=== PATIENT | female | born 1995 | race Caucasian/White ===

== ENCOUNTER 2016-10-04 06:40 | Inpatient (IN) | payer OTHER, MEDICAID ==
[~2016-10-04] VITALS: Ht 162.6 cm; Wt 78.5 kg
--- NOTE | ~2016-10-04 | FD ---
ADMIT: 10/04/2016 RM/LOC: 225 [facility] MR#: [id number] 2620 [facility] [address] [place] [id number] MARK HENDERSON [address] [place] [address] Final Diagnosis SEX: F AGE: 21 : 1995 ADMISSION DATE: 10/04/2016 DISCHARGE DATE: 10/07/2016 FINAL DIAGNOSIS: 1. Status post spontaneous vaginal delivery at term. 2. Seizure disorder. PROCEDURE: 10/05/2016 spontaneous vaginal delivery with delivery of viable male, 8 pounds, Apgars 7 and 9. Corazon Hampton MD/ naomi JOB #: [id number] CC: Corazon Hampton MD, Attending Physician NO FAMILY PHYSICIAN, Family Physician
--- NOTE | ~2016-10-04 | OR ---
ADMIT: 10/04/2016 RM/LOC: 225 [facility] MR#: [id number] 2620 [facility] [address] [place] [id number] MARK HENDERSON [address] [place] [address] Operative/Delivery Room Report SEX: F AGE: 21 : 1995 SURGERY DATE: 10/05/2016 SURGEON: Corazon Hampton MD PREOPERATIVE DIAGNOSES: 1. Intrauterine at 40 and 5/7th weeks' gestation. 2. Active labor. 3. Group B streptococcus negative. 4. Seizure disorder. POSTOPERATIVE DIAGNOSES: 1. Intrauterine at 40 and 5/7th weeks' gestation. 2. Active labor. 3. Group B streptococcus negative. 4. Seizure disorder. 5. Delivery of a viable male infant at 0357 hours weighing 8 pounds with scores of 7 at 1 minute, 9 at 5 minutes. PROCEDURE: Spontaneous vaginal delivery with repair of first-degree laceration. ANESTHESIA: Epidural. COMPLICATIONS: None. ESTIMATED BLOOD LOSS: 100 mL. FLUIDS: Crystalloid. INDICATIONS: This is a 21-year-old female, 1, para 0, who presents to the [facility] with an intrauterine at 40 and 4/7th weeks' gestation for induction of labor. Her was complicated by history of a seizure disorder and late entry to care. At the time of initial evaluation, she was noted to be 1.5 cm dilated. She was given 1 dose of misoprostol 25 mcg vaginally. Following this, a Lee bulb was placed. She did experience spontaneous rupture of membranes. Pitocin augmentation was used once the Lee bulb fell out. She did request and receive an epidural for pain control. She progressed to be complete in a satisfactory fashion at which time, she was allowed to push bringing the 's vertex to the perineum. DESCRIPTION OF PROCEDURE: The patient was noted be complete. She was placed in the dorsal lithotomy position and prepped and draped in usual sterile fashion. She was asked to push and delivered the 's vertex in the right occiput anterior position over the midline. Nuchal cord x1 was relieved around the infant's vertex. The anterior shoulder delivered easily followed ADMIT: 10/04/2016 RM/LOC: 225 [facility] MR#: [id number] [address] [place], [place] [id number] MARK HENDERSON [address] [place] [address] Operative/Delivery Room Report SEX: F AGE: 21 : 1995 by the posterior shoulder and the remainder of the . The infant did have spontaneous cry and movement of all 4 extremities. He was passed to the mother's abdomen where nursing personnel were in attendance. After 1 minute, the cord was clamped x2 and cut by the father. Cord blood was obtained. Twenty units of Pitocin were infused with IV fluids to help firm the uterus. The placenta delivered intact spontaneously. The uterus was not explored. Examination of the cervix did not reveal any lacerations. She did have 2 first-degree tears in the hymenal ring at the 3 o'clock and 7 o'clock positions. A single [id number] stitch of 3-0 Vicryl was placed at either of these to obtain hemostasis. The patient tolerated the procedure well. Sponge, needle, and instrument counts were correct. She is recovering on her Labor and Delivery suite with her infant. Corazon Hampton MD/ lori JOB #: [id number] CC: Corazon Hampton, Attending Physician FAMILY PHYSICIAN, Family Physician
[2016-10-08] MEDS ORDERED: PRENATAL VIT1 TAB PO (13:31)
[2016-10-08] MEDS ORDERED: KEPPRA750 MG PO (13:31)
[2016-10-08] MEDS ORDERED: MOTRIN-DPS800 MG PO (13:32)
[2016-10-08] MEDS ORDERED: NIPPLECREAM TP (13:32)
[2016-10-08] MEDS ORDERED: FOLVITE-DPS1 MG PO (13:32)
--- NOTE | 2016-10-27 22:28 | HP ---
ADMIT: 10/04/2016 RM/LOC: 225 [facility] MR#: [id number] [address] [facility] [address] [place], [place] [phone] MARK HENDERSON Brett [address] [place] [address] History and Physical SEX: F AGE: 21 : 1995 DATE OF SERVICE: CHIEF COMPLAINT: Induction of labor. HISTORY OF PRESENT ILLNESS: This is a 21-year-old female, 1, para 0, who presents to the [facility] with an intrauterine at 40-4/7th weeks' gestation with estimated date of confinement of 09/30/2016. Her estimated date of confinement is based off last menstrual period and consistent with an 8-week ultrasound. Her has been complicated by history of a seizure disorder and late entry to care. She has not had a seizure in several years. She was seen and evaluated by Maternal Medicine. Ultrasound has confirmed adequate growth. LABORATORY DATA: Blood type is O positive. Antibody screen negative. HIV negative. Hepatitis B surface antigen negative. RPR nonreactive. Rubella immune. Quad screen was normal. Diabetic screen of 76. Group B Strep is negative. Pap showed low-grade squamous intraepithelial lesion. Gonorrhea chlamydia is negative. PAST MEDICAL HISTORY: She does have a history of epilepsy. She denies hypertension, diabetes, asthma, kidney or thyroid disease. PAST SURGICAL HISTORY: None. SOCIAL HISTORY: She denies tobacco, alcohol, or drug use. The father of the baby is involved. ALLERGIES: NO KNOWN DRUG ALLERGIES. CURRENT MEDICATIONS: 1. vitamins. 2. Keppra 750 mg b.i.d. 3. Folic acid 5 mg daily. PHYSICAL EXAMINATION: VITAL SIGNS: Temperature is 96.8, blood pressure is 128/76. GENERAL: This is a pleasant female, in no acute distress. HEENT: Head is normocephalic, atraumatic. Pupils are equal, round, and reactive to light and accommodation. Extraocular muscles are intact. NECK: Supple. HEART: Regular rate and rhythm. LUNGS: Clear bilaterally. ABDOMEN: Soft, nontender, and nondistended. Gravid. EXTREMITIES: Nontender. heart tones are 120 to 125 baseline, moderate variability is present, 15 x 15 accelerations are present. Decelerations are absent. Uterine contractions are every 2 to 6 minutes, palpate mild, she does not feel all of these. Cervix is 1.5 cm dilated, 50% effaced, and -2 station per nursing ADMIT: 10/04/2016 RM/LOC: 225 [facility] MR#: [id number] [address] [phone] MARK HENDERSON [address] [facility] [address] [place] [address] History and Physical SEX: F AGE: 21 : 1995 staff. Fetus is vertex. Estimated weight is 7.5 pounds. IMPRESSION: 1. This is a 21-year-old female, 1, para 0, with intrauterine at 40-4/7th weeks' gestation. 2. Group B Streptococcus negative. 3. History of a seizure disorder. PLAN: At this time, we do plan to proceed with induction of labor. We will start with placing misoprostol 25 mcg vaginally and we will check her in 3-4 hours. We will augment as needed with assisted rupture of membranes and Pitocin, and anticipate a spontaneous vaginal delivery. Corazon Hampton MD/ lori JOB #: [id number] CC: Corazon Hampton, Attending Physician FAMILY PHYSICIAN, Family Physician
--- NOTE | 2016-10-27 22:32 | OR ---
ADMIT: 10/04/2016 RM/LOC: 225 [facility] MR#: [id number] [address] [id number] MARK HENDERSON [address] [place] [address] Operative/Delivery Room Report SEX: F AGE: 21 : 1995 SURGERY DATE: 10/05/2016 SURGEON: Corazon Hampton MD PROCEDURE: Removal of the epidural catheter. DESCRIPTION OF PROCEDURE: This is a 21-year-old female, 1, now para 1, who delivered a viable male with an epidural in place. Following delivery, she was placed in the sitting position, the epidural catheter was removed without any difficulty. The tip was noted to be intact. The patient tolerated the procedure well. She is now recovering in her Labor and Delivery suite with her infant. Corazon Hampton MD/ lori JOB #: [id number] CC: Corazon Hampton, Attending Physician FAMILY PHYSICIAN, Family Physician
== END 2016-10-07 11:15 | disposition home or self-care (01) | DRG 775 ==
LOC: BC 06:40 → 2LDRP 06:40 → BC 07:13 → 2LDRP 07:17
PROVIDERS: ADMIT Obstetrics & Gynecology
PROC: 10E0XZZ Delivery of Products of Conception, External Approach (ICD-10-PCS; principal; 2016-10-05)
PROC: 3E0P7GC Introduction of Other Therapeutic Substance into Female Reproductive, Via Natural or Artificial Opening (ICD-10-PCS; principal; 2016-10-05)
PROC: 0HQ9XZZ Repair Perineum Skin, External Approach (ICD-10-PCS; principal; 2016-10-05)
DX: O48.0 Post-term pregnancy (principal); O99.354 Diseases of the nervous system complicating childbirth; G40.909 Epilepsy, unspecified, not intractable, without status epilepticus; O69.81X0 Labor and delivery complicated by cord around neck, without compression, not applicable or unspecified; O70.0 First degree perineal laceration during delivery; Z3A.40 40 weeks gestation of pregnancy; Z37.0 Single live birth